=== PATIENT | female | born 1945 | race Two or more races ===

== ENCOUNTER 2017-06-12 10:30 | Inpatient (IN) | payer OTHER ==
[~2017-06-12] VITALS: Ht 154.9 cm; Wt 77.1 kg
[2017-06-12] MEDS ORDERED: METROPOLOL PO (13:15)
[2017-06-20] MEDS ORDERED: PERCOCET 5-3251 EACH PO (12:53)
[2017-06-20] MEDS ORDERED: DOCUSATE SODIU100 MG PO (12:53)
[2017-06-20] MEDS ORDERED: CLONAZEPAM1 MG PO (12:53)
== END 2017-06-20 13:09 | DRG 454 ==
LOC: PED 06-19 05:00 → O/R 06-19 05:00 → SURH 06-19 07:00 → PED 06-19 11:07
PROVIDERS: Orthopaedic Surgery Orthopaedic Surgery of the Spine
PROC: 0RG20A0 Fusion of 2 or more Cervical Vertebral Joints with Interbody Fusion Device, Anterior Approach, Anterior Column, Open Approach (ICD-10-PCS; 2017-06-19)
PROC: 0RG20K1 Fusion of 2 or more Cervical Vertebral Joints with Nonautologous Tissue Substitute, Posterior Approach, Posterior Column, Open Approach (ICD-10-PCS; 2017-06-19)
PROC: 0RT30ZZ Resection of Cervical Vertebral Disc, Open Approach (ICD-10-PCS; principal; 2017-06-19 07:00)
DX: M50.021 Cervical disc disorder at C4-C5 level with myelopathy (principal); M47.12 Other spondylosis with myelopathy, cervical region; I10 Essential (primary) hypertension

== ENCOUNTER 2017-08-21 11:11 | Outpatient (CLI) | payer OTHER ==
[~2017-08-21 11:11] MED LIST: CLONAZEPAM1 MG PO; DOCUSATE SODIU100 MG PO; METROPOLOL PO; PERCOCET 5-3251 EACH PO
== END 2017-08-21 12:11 | disposition home or self-care (01) ==
LOC: RAD 11:11
DX: M50.00 Cervical disc disorder with myelopathy, unspecified cervical region (principal); Z98.1 Arthrodesis status

== ENCOUNTER 2017-11-22 07:49 | Outpatient (CLI) | payer OTHER | END 2017-11-22 14:52 | disposition home or self-care (01) | LOC: MRI 07:49 | DX: M48.07 Spinal stenosis, lumbosacral region (principal); M50.00 Cervical disc disorder with myelopathy, unspecified cervical region; Z98.1 Arthrodesis status ==

== ENCOUNTER 2018-03-21 08:30 | Inpatient (IN) | payer OTHER ==
[~2018-03-21] VITALS: Ht 152.4 cm; Wt 73.5 kg
[2018-03-31] MEDS ORDERED: TOPROL XL50 M1 PO (08:18)
[2018-04-01] MEDS ORDERED: DOCUSATE SODIU100 MG PO (12:24)
[2018-04-01] MEDS ORDERED: GABAPENTIN800 MG PO (12:24)
[2018-04-01] MEDS ORDERED: AMOX-CLAV 875-1 EACH PO (12:25)
[2018-04-01] MEDS ORDERED: CLONAZEPAM1 MG PO (12:26)
[2018-04-01] MEDS ORDERED: PERCOCET 5-3251 EACH PO (12:26)
== END 2018-04-01 14:43 | disposition home or self-care (01) | DRG 455 ==
LOC: PED 03-31 05:19 → O/R 03-31 05:19 → SURG 03-31 08:30 → PED 03-31 13:43
PROVIDERS: Orthopaedic Surgery Orthopaedic Surgery of the Spine
PROC: 0SG1071 Fusion of 2 or more Lumbar Vertebral Joints with Autologous Tissue Substitute, Posterior Approach, Posterior Column, Open Approach (ICD-10-PCS; 2018-03-31)
PROC: 0ST20ZZ Resection of Lumbar Vertebral Disc, Open Approach (ICD-10-PCS; 2018-03-31)
PROC: 0SG10AJ Fusion of 2 or more Lumbar Vertebral Joints with Interbody Fusion Device, Posterior Approach, Anterior Column, Open Approach (ICD-10-PCS; 2018-03-31)
PROC: 07DS3ZZ Extraction of Vertebral Bone Marrow, Percutaneous Approach (ICD-10-PCS; 2018-03-31)
PROC: 0SG10A0 Fusion of 2 or more Lumbar Vertebral Joints with Interbody Fusion Device, Anterior Approach, Anterior Column, Open Approach (ICD-10-PCS; principal; 2018-03-31 13:00)
DX: M48.061 Spinal stenosis, lumbar region without neurogenic claudication (principal); M43.16 Spondylolisthesis, lumbar region; M51.16 Intervertebral disc disorders with radiculopathy, lumbar region; M41.56 Other secondary scoliosis, lumbar region; I10 Essential (primary) hypertension

== ENCOUNTER 2018-05-27 11:11 | Outpatient (CLI) | payer OTHER ==
[~2018-05-27 11:11] MED LIST changes: +AMOX-CLAV 875-1 EACH PO; +GABAPENTIN800 MG PO; +TOPROL XL50 M1 PO
== END 2018-05-27 11:16 | disposition home or self-care (01) ==
LOC: RAD 11:11
DX: M51.36 Other intervertebral disc degeneration, lumbar region (principal); Z98.1 Arthrodesis status

== ENCOUNTER 2018-09-05 10:47 | Outpatient (CLI) | payer OTHER | END 2018-09-05 10:51 | disposition home or self-care (01) | LOC: RAD 10:47 | DX: M51.36 Other intervertebral disc degeneration, lumbar region (principal); Z98.1 Arthrodesis status ==

== ENCOUNTER 2018-09-10 07:37 | Outpatient (CLI) | payer OTHER | END 2018-09-10 07:40 | disposition home or self-care (01) | LOC: SONOGRAMA 07:37 → MAMO-SONO 10:15 | DX: N60.11 Diffuse cystic mastopathy of right breast (principal); N60.12 Diffuse cystic mastopathy of left breast ==

== ENCOUNTER → 2018-09-17 | Outpatient (CLI) | payer OTHER | END | disposition home or self-care (01) | LOC: NUCLEAR 09-15 08:30 | DX: M81.0 Age-related osteoporosis without current pathological fracture (principal); M19.91 Primary osteoarthritis, unspecified site | CPT/HCPCS: 77080; 78315; A9503 ==